=== PATIENT | female | born 1960 | race Hispanic/Latino ===

== ENCOUNTER 2017-06-28 01:20 | Emergency (ER) | payer SELFPAY ==
[~2017-06-28] VITALS: Ht 165.1 cm; Wt 83.9 kg
--- OUTSIDE RECORDS SUMMARY | 2017-06-28 01:22 | XMS REPORT ---
Author Author [facility] Address Unknown Phone Unavailable Care Team Providers Care Nanotechnology Engineering Technician Name Role Phone Unavailable Unavailable Problems This patient has no known problems. Allergies, Adverse Reactions, Alerts This patient has no known allergies or adverse reactions. Medications This patient has no known medications. Encounters Start Date/Time End Date/Time Encounter Type Admission Type Attending [facility] Facility Care Department Encounter ID 2017-08-24 00:00:00 2017-08-24 00:00:00 Outpatient [facility] [id number] 2017-08-12 00:00:00 2017-08-12 00:00:00 Outpatient [facility] [id number] 2017-08-03 00:00:00 2017-08-03 00:00:00 Outpatient [facility] [id number] 2017-06-17 15:20:46 2017-06-17 15:20:46 Outpatient [facility] [id number] 2017-05-26 08:40:02 2017-05-26 08:40:02 Outpatient [facility] [id number] 2017-05-20 09:24:50 2017-05-20 09:24:50 Outpatient [facility] [id number] 2017-05-17 15:59:07 2017-05-17 15:59:07 Outpatient [facility] [id number] 2017-05-17 13:51:23 2017-05-17 13:51:23 Outpatient [facility] [id number] 2017-02-01 00:00:00 2017-02-01 00:00:00 Outpatient [facility] [id number] 2017-01-28 10:59:33 2017-01-28 10:59:33 Outpatient [facility] [id number] 2017-01-14 00:00:00 2017-01-14 00:00:00 Outpatient [facility] [id number] 2016-12-30 07:49:22 2016-12-30 07:49:22 Outpatient [facility] [id number] 2016-12-29 12:54:09 2016-12-29 12:54:09 Outpatient [facility] [id number] 2016-12-29 00:00:00 2016-12-29 00:00:00 Outpatient [facility] [id number] 2016-12-21 07:52:16 2016-12-21 07:52:16 Outpatient [facility] [id number] 2016-12-17 00:00:00 2016-12-17 00:00:00 Outpatient [facility] [id number] 2016-12-10 00:00:00 2016-12-10 00:00:00 Outpatient [facility] [id number] 2016-11-03 14:11:01 2016-11-03 14:11:01 Outpatient [facility] [id number] 2016-10-15 00:00:00 2016-10-15 00:00:00 Outpatient [facility] [id number] 2016-09-16 13:22:41 2016-09-16 13:22:41 Outpatient [facility] [id number] 2016-09-14 14:46:19 2016-09-14 14:46:19 Outpatient [facility] [id number] 2016-09-14 00:00:00 2016-09-14 00:00:00 Outpatient [facility] [id number] 2016-09-10 09:47:44 2016-09-10 09:47:44 Outpatient [facility] [id number] 2016-09-09 15:55:16 2016-09-09 15:55:16 Outpatient [facility] [id number] 2016-07-30 08:38:36 2016-07-30 08:38:36 Outpatient [facility] [id number] 2016-07-14 00:00:00 2016-07-14 00:00:00 Outpatient [facility] [id number]
[2017-06-28] MEDS ORDERED: MORPHINE SULFATE 2 MG/ML SYR IV STA (02:30)
[2017-06-28] MEDS ORDERED: ONDANSETRON HCL 4 MG ORAL DISINTEGRATING TAB PO ONE (02:30)
[2017-06-28] MEDS ORDERED: KETOROLAC TROMETHAMINE 30 MG/ML VIAL IV STA (02:30)
[2017-06-28] MEDS ORDERED: SODIUM CHLORIDE 0.9% 1000ML 1,000 ML IV STA (02:30)
[2017-06-28 02:39] LABS: BASOPHILS # (AUTO) 0.1 (0.0-0.1); BASOPHILS % 0.9 % (0.0-1.0); EOSINOPHILS # (AUTO) 0.2 (0.0-0.4); EOSINOPHILS % 1.4 % (0.0-6.0); HEMATOCRIT 36.5 % (34.2-44.1); HEMOGLOBIN 11.8 g/dL (12.0-16.0); LYMPHOCYTES # (AUTO) 3.2 (1.0-3.2); LYMPHOCYTES % 27.5 % (18.0-39.1); MEAN CORPUSCULAR HEMOGLOBIN 29.5 pg (28-32); MEAN CORPUSCULAR HGB CONC 32.3 g/dL (31-35); MEAN CORPUSCULAR VOLUME 91.3 fL (81-99); MONOCYTES # (AUTO) 0.7 (0.2-0.8); NEUTROPHILS # (AUTO) 7.3 (2.1-6.9); NEUTROPHILS % 63.9 % (38.7-80.0); PLATELET COUNT 261 x10e3/uL (140-360); RED CELL DISTRIBUTION WIDTH 13.3 % (11.7-14.4)
[2017-06-28 02:41] LABS: CLARITY,URINE CLOUDY (CLEAR); COLOR,URINE RED (YELLOW); LEUKOCYTE ESTERASE ,URINE 1+ (NEGATIVE)
[2017-06-28 02:42] LABS: BILIRUBIN,URINE NEGATIVE (NEGATIVE); KETONES,URINE NEGATIVE (NEGATIVE); NITRITE,URINE POSITIVE (NEGATIVE); PROTEIN,URINE DIPSTICK 3+ (NEGATIVE); URINE UROBILINOGEN 0.2 mg/dL (0.2 - 1)
[2017-06-28 02:43] LABS: INR 0.89; PARTIAL THROMBOPLASTIN TIME 29.7 seconds (23.8-35.5); PROTHROMBIN TIME 11.3 seconds (11.9-14.5)
[2017-06-28 02:52] LABS: ALANINE AMINOTRANSFERASE 22 IU/L (0-55); ALBUMIN/GLOBULIN RATIO 1.2 (0.8-2.0); ALKALINE PHOSPHATASE 86 IU/L (40-150); ANION GAP 14.9 mmol/L (8-16); BLOOD UREA NITROGEN 13 mg/dL (7-26); BUN/CREATININE RATIO 18 (6-25); CALCIUM 9.8 mg/dL (8.4-10.2); CARBON DIOXIDE 22 mmol/L (22-29); CHLORIDE 101 mmol/L (98-107); CREATININE, SERUM 0.71 mg/dL (0.57-1.11); EST GLOMERULAR FILTRATION RATE > 60 ML/MIN (60-); GLUCOSE 203 mg/dL (74-118); POTASSIUM 3.9 mmol/L (3.5-5.1); SODIUM 134 mmol/L (136-145)
[2017-06-28] MEDS ORDERED: CEFTRIAXONE SOD 1 GM VIAL IV STA (02:52)
[2017-06-28 03:00] LABS: RBC,URINE >50 /HPF (0-5); WBC,URINE (MAN) >50 /HPF (0-5)
[2017-06-28 03:01] LABS: BACTERIA,URINE FEW /HPF; EPITHELIAL CELLS,URINE FEW /LPF; MUCUS,URINE FEW (RARE); RENAL EPITHELIAL CELLS,URINE FEW; TRANSITIONAL EPI CELLS,URINE FEW
--- NOTE | 2017-06-28 03:26 | Diagnostic Imaging Report ---
EXAM: CT ABDOMEN/PELVIS WO DATE: 06/28/2017 2:30 AM INDICATION: hematuria, pain,stone COMPARISON: None TECHNIQUE: The abdomen and pelvis were scanned using a multidetector helical scanner. Coronal and sagittal reformations were obtained. Routine protocol performed. IV Contrast: 0 ml Isovue 300/370 FINDINGS: Lack of IV contrast decreases sensitivity in evaluating abdominal and pelvic organs. LOWER THORAX: No consolidations LIVER/BILIARY: Mild hepatic steatosis. No discrete lesions. GALLBLADDER: Not visualized. SPLEEN: Unremarkable PANCREAS: Unremarkable ADRENALS: No nodules KIDNEYS: Mild nonspecific perinephric stranding. No renal or ureteral stones. No hydronephrosis. GI TRACT: No wall thickening or evidence of obstruction. Diverticulosis. Appendix is not visualized. VESSELS: Minimal atherosclerotic calcification. PERITONEUM/RETROPERITONEUM: No free air or fluid LYMPH NODES: No lymphadenopathy REPRODUCTIVE ORGANS/BLADDER: Mild circumferential bladder wall thickening and perivesicular stranding. Hysterectomy. SOFT TISSUES: Unremarkable BONES: No suspicious bone lesions. IMPRESSION: Findings which can be seen with cystitis. Correlate with urinalysis. No renal stones or obstructive uropathy. Signed by: Dr Briana Lopez MD on 06/28/2017 3:23 AM
[2017-06-28 04:29] VITALS: BP 122/84
== END 2017-06-28 05:00 | disposition home or self-care (01) ==
LOC: ER 01:20
DX: R10.30 Lower abdominal pain, unspecified (principal); R30.0 Dysuria; N30.01 Acute cystitis with hematuria; E11.9 Type 2 diabetes mellitus without complications; F32.9 Major depressive disorder, single episode, unspecified
CPT/HCPCS: 36415; 74176; 80053; 81001; 85025; 85610; 85730; 87086; 99284; J0696; J1885; J2270; J7030

== ENCOUNTER 2017-07-13 19:28 | Emergency (ER) | payer SELFPAY ==
[~2017-07-13] VITALS: Ht 165.1 cm; Wt 83.9 kg
--- OUTSIDE RECORDS SUMMARY | 2017-07-13 19:30 | XMS REPORT | Continuity of Care Document ---
Author Author [facility] Organization [facility] Address [address] [place] [address] Phone Unavailable Care Team Providers Care Replenishment Buyer Name Role Phone NONSTAFF PCP Unavailable Advance Directives Directive Response Recorded Date/Time Does the patient have an advance directive? No 06/28/17 1:18am If yes, is advance directive on file with [facility]? No 06/28/17 1:18am If not on file with [facility] will patient provide a copy? No 06/28/17 1:18am Do you have a Directive to Physician? No 06/28/17 1:18am Do you have a Medical Power of Special Systems Technician? No 06/28/17 1:18am Do you have an out of hospital Do Not Resuscitate Order? No 06/28/17 1:18am Do you have any special needs we should be aware of? No 06/28/17 1:18am Do you have a support person here with you today? Yes 06/28/17 1:18am Did patient receive Notice of Privacy Practices? Yes 06/28/17 1:18am Did patient receive patient rights and responsibilities? Yes 06/28/17 1:18am Problems No problem information available. Medications No medication information available. Social History No social history information available. Hospital Discharge Instructions No hospital discharge instruction information available. Plan of Care Discharge Date 06/28/17 5:00am Disposition HOME, SELF-CARE Condition at Discharge Stable Instructions/Education Provided Abdominal Pain - Adult Urinary Tract Infection - Women Prescriptions See Medication Section Referrals ClinicaGbriel MD Additional Instructions/Education REST; TAKE MEDS PESCRIBED; FOLLOW UP WITH YOUR PCP; Functional Status No functional status information available. Allergies, Adverse Reactions, Alerts No known allergies. Immunizations No immunization information available. Vital Signs Acute Vital Signs Vital Response Date/Time Pulse Pulse Rate (adult) 84 bpm (60 - 90) 06/28/2017 4:29am Respiratory Rate 16 bpm (12 - 24) 06/28/2017 4:29am Blood Pressure 122/84 mm Hg 06/28/2017 4:29am Height 5 ft 5 in 06/28/2017 1:51am Weight 185 lb 06/28/2017 1:51am Body Mass Index 30.8 kg/m^2 06/28/2017 1:51am Results Laboratory Results Test Name Result Units Flags Reference Collection Date/Time Result Date/ Time Comments White Blood Count 11.47 x10e3/uL H 4.8-10.8 06/28/2017 1:47am 2017 2:43am Red Blood Count 4.00 x10e6/uL 3.6-5.1 06/28/2017 1:47am 06/28/2017 2: 43am Hemoglobin 11.8 g/dL L 12.0-16.0 06/28/2017 1:47am 06/28/2017 2:43am Hematocrit 36.5 % 34.2-44.1 06/28/2017 1:47am 06/28/2017 2:43am Mean Corpuscular Volume 91.3 fL 81-99 06/28/2017 1:47am 06/28/2017 2: 43am Mean Corpuscular Hemoglobin 29.5 pg 28-32 06/28/2017 1:47am 06/28/2017 2:43am Mean Corpuscular Hemoglobin Concent 32.3 g/dL 31-35 06/28/2017 1:47am 06/28/2017 2:43am Red Cell Distribution Width 13.3 % 11.7-14.4 06/28/2017 1:47am 2017 2:43am Platelet Count 261 x10e3/uL 140-360 06/28/2017 1:47am 06/28/2017 2: 43am Neutrophils (%) (Auto) 63.9 % 38.7-80.0 06/28/2017 1:47am 06/28/2017 2: 43am Lymphocytes (%) (Auto) 27.5 % 18.0-39.1 06/28/2017 1:47am 06/28/2017 2: 43am Monocytes (%) (Auto) 6.0 % 4.4-11.3 06/28/2017 1:47am 06/28/2017 2: 43am Eosinophils (%) (Auto) 1.4 % 0.0-6.0 06/28/2017 1:47am 06/28/2017 2: 43am Basophils (%) (Auto) 0.9 % 0.0-1.0 06/28/2017 1:47am 06/28/2017 2:43am IM GRANULOCYTES % 0.3 % 0.0-1.0 06/28/2017 1:47am 06/28/2017 2:43am Neutrophils # (Auto) 7.3 H 2.1-6.9 06/28/2017 1:47am 06/28/2017 2: 43am Lymphocytes # (Auto) 3.2 1.0-3.2 06/28/2017 1:47am 06/28/2017 2:43am Monocytes # (Auto) 0.7 0.2-0.8 06/28/2017 1:47am 06/28/2017 2:43am Eosinophils # (Auto) 0.2 0.0-0.4 06/28/2017 1:47am 06/28/2017 2:43am Basophils # (Auto) 0.1 0.0-0.1 06/28/2017 1:47am 06/28/2017 2:43am Absolute Immature Granulocyte (auto 0.04 x10e3/uL 0-0.1 06/28/2017 1: 47am 06/28/2017 2:43am Prothrombin Time 11.3 seconds L 11.9-14.5 06/28/2017 1:47am 06/28/2017 2 :43am Prothromb Time International Ratio 0.89 06/28/2017 1:47am 2017 2:43am Oral Anticoagulant Therapy INR Values: 1. Low Intensity Therapy 1.5 - 2.0 2. Moderate Intensity Therapy 2.0 - 3.0 3. High Intensity Therapy(1) 2.5 - 3.5 4. High Intensity Therapy(2) 3.0 - 4.0 5. Panic Value INR > 5.0 Activated Partial Thromboplast Time 29.7 seconds 23.8-35.5 06/28/2017 1: 47am 06/28/2017 2:58am Urine Color RED H YELLOW 06/28/2017 1:47am 06/28/2017 2:43am Urine Clarity CLOUDY H CLEAR 06/28/2017 1:47am 06/28/2017 2:43am Urine Specific [place] 1.010 1.010-1.025 06/28/2017 1:47am 2017 2:43am Urine pH 6 5 - 7 06/28/2017 1:47am 06/28/2017 2:43am Urine Leukocyte Esterase 1+ H NEGATIVE 06/28/2017 1:47am 06/28/2017 2: 43am Urine Nitrite POSITIVE H NEGATIVE 06/28/2017 1:47am 06/28/2017 2:43am Urine Protein 3+ H NEGATIVE 06/28/2017 1:47am 06/28/2017 2:43am Urine Glucose (UA) NEGATIVE NEGATIVE 06/28/2017 1:47am 06/28/2017 2: 43am Urine Ketones NEGATIVE NEGATIVE 06/28/2017 1:47am 06/28/2017 2:43am Urine Urobilinogen 0.2 mg/dL 0.2 - 1 06/28/2017 1:47am 06/28/2017 2: 43am Urine Bilirubin NEGATIVE NEGATIVE 06/28/2017 1:47am 06/28/2017 2: 43am Urine Blood 4+ H NEGATIVE 06/28/2017 1:47am 06/28/2017 2:43am Urine WBC >50 /HPF H 0-5 06/28/2017 1:47am 06/28/2017 3:01am Urine RBC >50 /HPF H 0-5 06/28/2017 1:47am 06/28/2017 3:01am Urine Bacteria FEW /HPF NONE 06/28/2017 1:47am 06/28/2017 3:01am Urine Epithelial Cells FEW /LPF NONE 06/28/2017 1:47am 06/28/2017 3: 01am Urine Transitional Epithelial Cells FEW H NONE 06/28/2017 1:47am 06/28 3:01am Urine Renal Epithelial Cells FEW H NONE 06/28/2017 1:47am 06/28/2017 3 :01am Urine Mucus FEW H RARE 06/28/2017 1:47am 06/28/2017 3:01am Sodium Level 134 mmol/L L 136-145 06/28/2017 1:47am 06/28/2017 2:58am Potassium Level 3.9 mmol/L 3.5-5.1 06/28/2017 1:47am 06/28/2017 2:58am Chloride Level 101 mmol/L 98-107 06/28/2017 1:47am 06/28/2017 2:58am Carbon Dioxide Level 22 mmol/L 22-29 06/28/2017 1:47am 06/28/2017 2: 58am Anion Gap 14.9 mmol/L 8-16 06/28/2017 1:47am 06/28/2017 2:58am Blood Urea Nitrogen 13 mg/dL 7-26 06/28/2017 1:47am 06/28/2017 2:58am Creatinine 0.71 mg/dL 0.57-1.11 06/28/2017 1:47am 06/28/2017 2:58am BUN/Creatinine Ratio 18 6-25 06/28/2017 1:47am 06/28/2017 2:58am Estimat Glomerular Filtration Rate > 60 ML/MIN 60- 06/28/2017 1:47am 2:58am Ranges were taken from the National Kidney Disease Education Program and the National Kid[employer] literature. Reference ranges: 60 or greater: Normal 16-59 (for 3 consecutive months): Chronic kidney disease 15 or less: Kidney failure Glucose Level 203 mg/dL H 74-118 06/28/2017 1:47am 06/28/2017 2:58am Calcium Level 9.8 mg/dL 8.4-10.2 06/28/2017 1:4706/28/2017 2:58am Total Bilirubin 0.3 mg/dL 0.2-1.2 06/28/2017 1:47am 06/28/2017 2:58am Aspartate Amino Transf (AST/SGOT) 13 IU/L 5-34 06/28/2017 1:47am 2017 2:58am Alanine Aminotransferase (ALT/SGPT) 22 IU/L 0-55 06/28/2017 1:47am 2:58am Total Protein 7.4 g/dL 6.5-8.1 06/28/2017 1:47am 06/28/2017 2:58am Albumin 4.0 g/dL 3.5-5.0 06/28/2017 1:47am 06/28/2017 2:58am Globulin 3.4 g/dL 2.3-3.5 06/28/2017 1:47am 06/28/2017 2:58am Albumin/Globulin Ratio 1.2 0.8-2.0 06/28/2017 1:47am 06/28/2017 2: 58am Alkaline Phosphatase 86 IU/L 40-150 06/28/2017 1:47am 06/28/2017 2: 58am Procedures Procedure Status Date Provider(s) CT of abdomen and pelvis without contrast Active 06/28/17 LIBBY FAYE MD Encounters Encounter Location Arrival/Admit Date Discharge/Depart Date Attending Provider Departed Emergency Room [facility] 06/28/17 1:20am 5:00am LIBBY FAYE MD
[2017-07-13] MEDS ORDERED: SODIUM CHLORIDE 0.9% 1000ML 1,000 ML IV ONE (20:15)
[2017-07-13 20:27] LABS: BASOPHILS # (AUTO) 0.1 (0.0-0.1); BASOPHILS % 0.8 % (0.0-1.0); HEMATOCRIT 34.3 % (34.2-44.1); HEMOGLOBIN 11.4 g/dL (12.0-16.0); LYMPHOCYTES # (AUTO) 1.4 (1.0-3.2); LYMPHOCYTES % 18.3 % (18.0-39.1); MEAN CORPUSCULAR HEMOGLOBIN 29.7 pg (28-32); MEAN CORPUSCULAR HGB CONC 33.2 g/dL (31-35); MEAN CORPUSCULAR VOLUME 89.3 fL (81-99); MONOCYTES # (AUTO) 0.5 (0.2-0.8); MONOCYTES % 6.1 % (4.4-11.3); NEUTROPHILS # (AUTO) 5.5 (2.1-6.9); NEUTROPHILS % 74.4 % (38.7-80.0); PLATELET COUNT 262 x10e3/uL (140-360); RED BLOOD COUNT 3.84 x10e6/uL (3.6-5.1); RED CELL DISTRIBUTION WIDTH 13.4 % (11.7-14.4)
[2017-07-13 20:28] LABS: BILIRUBIN,URINE NEGATIVE (NEGATIVE); CLARITY,URINE CLEAR (CLEAR); COLOR,URINE YELLOW (YELLOW); KETONES,URINE TRACE (NEGATIVE); LEUKOCYTE ESTERASE ,URINE 1+ (NEGATIVE); NITRITE,URINE NEGATIVE (NEGATIVE); PROTEIN,URINE DIPSTICK TRACE (NEGATIVE); URINE UROBILINOGEN 0.2 mg/dL (0.2 - 1)
[2017-07-13 20:42] LABS: BACTERIA,URINE MANY /HPF; EPITHELIAL CELLS,URINE MODERATE /LPF
[2017-07-13 20:45] LABS: ALANINE AMINOTRANSFERASE 31 IU/L (0-55); ALBUMIN 4.2 g/dL (3.5-5.0); ALBUMIN/GLOBULIN RATIO 1.2 (0.8-2.0); ALKALINE PHOSPHATASE 90 IU/L (40-150); ANION GAP 18.4 mmol/L (8-16); BLOOD UREA NITROGEN 7 mg/dL (7-26); BUN/CREATININE RATIO 10 (6-25); CALCIUM 9.9 mg/dL (8.4-10.2); CARBON DIOXIDE 22 mmol/L (22-29); CHLORIDE 99 mmol/L (98-107); CREATININE, SERUM 0.72 mg/dL (0.57-1.11); EST GLOMERULAR FILTRATION RATE > 60 ML/MIN (60-); GLUCOSE 150 mg/dL (74-118); POTASSIUM 3.4 mmol/L (3.5-5.1); SODIUM 136 mmol/L (136-145)
== END 2017-07-13 21:52 | disposition home or self-care (01) ==
LOC: ER 19:28
DX: R10.30 Lower abdominal pain, unspecified (principal); N30.90 Cystitis, unspecified without hematuria; E11.9 Type 2 diabetes mellitus without complications; E78.5 Hyperlipidemia, unspecified; F32.9 Major depressive disorder, single episode, unspecified
CPT/HCPCS: 36415; 80053; 81001; 85025; 87086; 87186; 99284; J7030

== ENCOUNTER 2021-07-16 23:50 | Emergency (ER) | payer OTHER ==
[~2021-07-16] VITALS: Ht 165.1 cm; Wt 83.9 kg
[2021-07-17] MEDS ORDERED: PREDNISONE20 MG PO (02:09)
[2021-07-17] MEDS ORDERED: PROAIR HFA INH8.5 GM INH (02:09)
[2021-07-17] MEDS ORDERED: BENZONATATE100 MG PO (02:09)
[2021-07-17 02:19] VITALS: BP 125/70
== END 2021-07-17 02:17 | disposition home or self-care (01) ==
LOC: ER 07-17 01:03
DX: R05.9 Cough, unspecified (principal); J40 Bronchitis, not specified as acute or chronic; Z20.822 Contact with and (suspected) exposure to COVID-19; R94.31 Abnormal electrocardiogram [ECG] [EKG]
CPT/HCPCS: 71045; 93005; 99283; U0002

== ENCOUNTER 2021-10-24 10:59 | Emergency (ER) | payer OTHER ==
[~2021-10-24] VITALS: Ht 165.1 cm; Wt 83.9 kg
[~2021-10-24 10:59] MED LIST: BENZONATATE100 MG PO; PREDNISONE20 MG PO; PROAIR HFA INH8.5 GM INH
[2021-10-24] MEDS ORDERED: ACETAMINOPHEN 325 MG TAB PO ONE (11:15)
== END 2021-10-24 13:07 | disposition home or self-care (01) ==
LOC: ER 11:04
DX: R05.9 Cough, unspecified (principal); B34.9 Viral infection, unspecified; I10 Essential (primary) hypertension; E11.9 Type 2 diabetes mellitus without complications; E78.5 Hyperlipidemia, unspecified; F32.A Depression, unspecified; Z20.822 Contact with and (suspected) exposure to COVID-19
CPT/HCPCS: 99283; U0002

== ENCOUNTER 2021-12-27 14:26 | Emergency (ER) | payer OTHER ==
[~2021-12-27] VITALS: Ht 165.1 cm; Wt 83.9 kg
[2021-12-27] MEDS ORDERED: SODIUM CHLORIDE FLUSH 10 ML SYR IV PRN (15:00)
[2021-12-27 15:29] LABS: ALBUMIN/GLOBULIN RATIO 1.3 (0.8-2.0); CALCIUM 9.5 mg/dL (8.4-10.2); CREATININE, SERUM 0.78 mg/dL (0.57-1.11)
[2021-12-27 15:31] LABS: BASOPHILS # (AUTO) 0.1 (0.0-0.1); BASOPHILS % 1.2 % (0.0-1.0); EOSINOPHILS # (AUTO) 0.1 (0.0-0.4); EOSINOPHILS % 1.2 % (0.0-6.0); HEMATOCRIT 39.5 % (34.2-44.1); HEMOGLOBIN 12.5 g/dL (12.0-16.0); LYMPHOCYTES % 36.2 % (18.0-39.1); MEAN CORPUSCULAR HEMOGLOBIN 29.8 pg (28-32); MEAN CORPUSCULAR HGB CONC 31.6 g/dL (31-35); MONOCYTES # (AUTO) 0.4 (0.2-0.8); MONOCYTES % 6.6 % (4.4-11.3); NEUTROPHILS # (AUTO) 3.1 (2.1-6.9); NEUTROPHILS % 54.6 % (38.7-80.0); PLATELET COUNT 251 x10e3/uL (140-360); RED CELL DISTRIBUTION WIDTH 13.7 % (11.7-14.4)
== END 2021-12-27 16:42 | disposition home or self-care (01) ==
LOC: ER 14:30
DX: R07.89 Other chest pain (principal); I10 Essential (primary) hypertension; E11.65 Type 2 diabetes mellitus with hyperglycemia; E78.5 Hyperlipidemia, unspecified; F32.A Depression, unspecified; J45.909 Unspecified asthma, uncomplicated
CPT/HCPCS: 36415; 71045; 80053; 83880; 84484; 85025; 85379; 93005; 94760; 99284

== ENCOUNTER → 2024-04-18 | Day surgery (SDC) | payer OTHER ==
[~2024-04-18] MED LIST changes: +ASPIRIN81 MG PO; +EFFEXOR XR 3737.5 MG PO; +FENTANYL CITRATE/PF 100MCG/2 ML INJ ONE; +HUMALOG MI100 UNIT/2 SQ; +JARDIANCE25 MG PO; +LAMICTAL5 MG PO; +LANTUS 3ML100 UNITS/ SC; +LIDOCAINE HCL 2% LOCAL INJ 5 ML SDV VIAL INJ ONE; +LIPITOR10 MG PO; +OMEPRAZOLE40 MG PO; +PROPOFOL IV EMULSION 10 MG/ML 20 ML VIAL ONE
[2024-04-18] MEDS: LACTATED RINGER'S 1,000 ML ONE (08:18)
[2024-04-18 10:42] VITALS: TEMP 97.7
[2024-04-18 11:10] VITALS: BP 133/72; PULSE 61; RESP 16; O2SAT 98
== END | disposition home or self-care (01) ==
LOC: OR 07:48
PROVIDERS: ATTEND Internal Medicine Gastroenterology
DX: R19.5 Other fecal abnormalities (principal); K31.7 Polyp of stomach and duodenum; K29.50 Unspecified chronic gastritis without bleeding; K21.9 Gastro-esophageal reflux disease without esophagitis; K44.9 Diaphragmatic hernia without obstruction or gangrene; K59.00 Constipation, unspecified; K57.30 Diverticulosis of large intestine without perforation or abscess without bleeding; E11.9 Type 2 diabetes mellitus without complications; R03.0 Elevated blood-pressure reading, without diagnosis of hypertension; E78.5 Hyperlipidemia, unspecified; N39.0 Urinary tract infection, site not specified; F41.9 Anxiety disorder, unspecified; F32.A Depression, unspecified; Z79.82 Long term (current) use of aspirin; Z79.84 Long term (current) use of oral hypoglycemic drugs; Z79.4 Long term (current) use of insulin; Z79.899 Other long term (current) drug therapy; Z68.31 Body mass index [BMI] 31.0-31.9, adult
CPT/HCPCS: 43239; 43251; 45378; J2003; J2704; J3010; J7121

== ENCOUNTER → 2024-04-28 | Day surgery (SDC) | payer OTHER ==
[~2024-04-28] MED LIST changes: -FENTANYL CITRATE/PF 100MCG/2 ML INJ ONE
[2024-04-28] MEDS: LACTATED RINGER'S 1,000 ML ONE (14:42)
[2024-04-28 16:50] VITALS: TEMP 98.9
[2024-04-28 17:20] VITALS: BP 137/75; PULSE 65; RESP 16; O2SAT 98
== END | disposition home or self-care (01) ==
LOC: OR 14:02
PROVIDERS: ATTEND Internal Medicine Gastroenterology
DX: R19.5 Other fecal abnormalities (principal); D12.2 Benign neoplasm of ascending colon; D12.4 Benign neoplasm of descending colon; K57.30 Diverticulosis of large intestine without perforation or abscess without bleeding; K59.00 Constipation, unspecified; K64.8 Other hemorrhoids; K21.9 Gastro-esophageal reflux disease without esophagitis; E11.9 Type 2 diabetes mellitus without complications; R03.0 Elevated blood-pressure reading, without diagnosis of hypertension; E78.5 Hyperlipidemia, unspecified; F32.A Depression, unspecified; Z79.84 Long term (current) use of oral hypoglycemic drugs; Z79.4 Long term (current) use of insulin; Z79.899 Other long term (current) drug therapy; Z68.31 Body mass index [BMI] 31.0-31.9, adult
CPT/HCPCS: 45384; 45385; J2003; J2704; J7121

== ENCOUNTER 2024-05-13 13:44 | Emergency (ER) | payer OTHER ==
[~2024-05-13] VITALS: Ht 167.6 cm; Wt 83.9 kg
[~2024-05-13 13:44] MED LIST changes: -LIDOCAINE HCL 2% LOCAL INJ 5 ML SDV VIAL INJ ONE; -PROPOFOL IV EMULSION 10 MG/ML 20 ML VIAL ONE
[2024-05-13 14:28] VITALS: PULSE 85; RESP 16; TEMP 98.1
[2024-05-13 15:29] LABS: BASOPHILS # (AUTO) 0.1 (0.0-0.1); BASOPHILS % 1.3 % (0.0-1.0); EOSINOPHILS # (AUTO) 0.1 (0.0-0.4); EOSINOPHILS % 1.3 % (0.0-6.0); HEMATOCRIT 37.1 % (34.2-44.1); HEMOGLOBIN 11.9 g/dL (12.0-16.0); LYMPHOCYTES # (AUTO) 2.1 (1.0-3.2); MEAN CORPUSCULAR HGB CONC 32.1 g/dL (31-35); MEAN CORPUSCULAR VOLUME 87.3 fL (81-99); MONOCYTES # (AUTO) 0.4 (0.2-0.8); MONOCYTES % 5.7 % (4.4-11.3); NEUTROPHILS # (AUTO) 3.5 (2.1-6.9); NEUTROPHILS % 56.5 % (38.7-80.0); PLATELET COUNT 255 x10e3/uL (140-360); RED BLOOD COUNT 4.25 x10e6/uL (3.6-5.1); RED CELL DISTRIBUTION WIDTH 14.7 % (11.7-14.4); WHITE BLOOD COUNT 6.12 x10e3/uL (4.8-10.8)
[2024-05-13 15:38] LABS: BILIRUBIN,URINE NEGATIVE (NEGATIVE); CLARITY,URINE CLEAR (CLEAR); COLOR,URINE YELLOW (YELLOW); GLUCOSE, URINE 500 (NEGATIVE); KETONES,URINE NEGATIVE (NEGATIVE); LEUKOCYTE ESTERASE ,URINE NEGATIVE (NEGATIVE); NITRITE,URINE NEGATIVE (NEGATIVE); PH,URINE 5 (5 - 7); PROTEIN,URINE DIPSTICK NEGATIVE (NEGATIVE); URINE UROBILINOGEN 0.2 mg/dL (0.2 - 1)
[2024-05-13 15:47] LABS: BACTERIA,URINE MODERATE /HPF; EPITHELIAL CELLS,URINE MODERATE /LPF
[2024-05-13 15:48] LABS: CORONAVIRUS COVID-19 AG NEGATIVE (NEGATIVE); INFLUENZA A AG NEGATIVE (NEGATIVE); INFLUENZA B AG NEGATIVE (NEGATIVE)
[2024-05-13 15:59] LABS: ALBUMIN 4.3 g/dL (3.5-5.0); ALBUMIN/GLOBULIN RATIO 1.3 (0.8-2.0); ANION GAP 17.6 mmol/L (8-16); BILIRUBIN,TOTAL 0.3 mg/dL (0.2-1.2); CALCIUM 9.6 mg/dL (8.4-10.2); CREATININE, SERUM 1.13 mg/dL (0.57-1.11); POTASSIUM 4.6 mmol/L (3.5-5.1); TOTAL PROTEIN 7.7 g/dL (6.5-8.1)
[2024-05-13] MEDS: SODIUM CHLORIDE 0.9% 1000ML 1,000 ML IV SCH (16:25)
[2024-05-13] MEDS ORDERED: CEFDINIR300 MG PO (17:41)
[2024-05-13 18:02] VITALS: BP 117/92; PULSE 74; RESP 18; O2SAT 100
== END 2024-05-13 18:11 | disposition home or self-care (01) ==
LOC: ER 15:41
DX: R53.83 Other fatigue (principal); N39.0 Urinary tract infection, site not specified; E11.65 Type 2 diabetes mellitus with hyperglycemia; I10 Essential (primary) hypertension; E78.5 Hyperlipidemia, unspecified; J45.909 Unspecified asthma, uncomplicated; F32.A Depression, unspecified; Z11.52 Encounter for screening for COVID-19
CPT/HCPCS: 36415; 71045; 80053; 81001; 82948; 85025; 87428; 99284; J7030